=== PATIENT | male | born 1995 | race Hispanic/Latino ===

== ENCOUNTER 2019-04-20 14:59 | Emergency (ER) | payer SELFPAY ==
[~2019-04-20] VITALS: Ht 170.2 cm; Wt 149.7 kg
--- OUTSIDE RECORDS SUMMARY | 2019-04-20 15:03 | XMS REPORT | Clinical Summary ---
Author Author [facility] Organization [facility] Address Unknown Phone Unavailable Care Team Providers Care Classification And Treatment Director Name Role Phone Asked, No Pcp PCP Unavailable Allergies No Known Allergies Medications End Date Status Medication Sig Dispensed Refills Start Date 06/27/2018 Discontinued cephalexin (KEFLEX) 500 Take 1 28 capsule 0 10/14/201 MG capsule capsule (500 8 mg total) by mouth 4 (four) times a day for 7 days. 07/04/2018 cephalexin (KEFLEX) 500 Take 1 28 capsule 0 10/14/201 MG capsule capsule (500 8 mg total) by mouth 4 (four) times a day for 7 days. Active Problems Not on file Encounters Care Team Description Date Type Specialty Yovani Appiah II, Chun Johnson MD Encounter for removal of sutures (Primary Dx) 07/04/2018 Emergency Emergency Medicine Mathew Camacho MD Laceration of right hand, foreign body presence unspecified, initial encounter (Primary Dx); Laceration of right wrist, initial encounter 06/27/2018 Emergency Emergency Medicine after 04/19/2018 Immunizations Name Dates Previously Given Next Due Tdap 06/27/2018 Social History Date Tobacco Use Types Packs/Day Years Used Never Smoker Smokeless Tobacco: Never Used Alcohol Use Drinks/Week oz/Week Comments No Sex Assigned at Date Recorded Not on file Industry Job Start Date Occupation Not on file Not on file Not on file Travel End Travel History Travel Start No recent travel history available. Last Filed Vital Signs Time Taken Vital Sign Reading 07/04/2018 9:13 PM CDT Blood Pressure 140/78 07/04/2018 9:13 PM CDT Pulse 88 07/04/2018 9:13 PM CDT Temperature 36.4 C (97.6 F) 07/04/2018 9:13 PM CDT Respiratory Rate 18 07/04/2018 9:13 PM CDT Oxygen Saturation 96% - Inhaled Oxygen - Concentration - Weight - 07/04/2018 6:44 PM CDT Height 172.7 cm (5' 8") - Body Mass Index - Plan of Treatment Health Maintenance Due Date Last Done Comments INFLUENZA VACCINE 2019 Procedures Comments Procedure Name Priority Date/Time Associated Diagnosis SUTURE REMOVAL Routine 07/04/2018 9:34 PM CDT XR WRIST 3+ VW RIGHT STAT 06/27/2018 4:26 PM CDT XR HAND 3+ VW RIGHT STAT 06/27/2018 4:25 PM CDT KS RESUP NPTERF WND BODY Routine 06/27/2018 2.6-7.5 CM 4:24 PM CDT KS RESUP NPTERF WND BODY Routine 06/27/2018 2.6-7.5 CM 4:24 PM CDT after 04/19/2018 Results * SUTURE REMOVAL (07/04/2018 9:34 PM CDT) Narrative Performed At Chun Lemos MD 07/07/2018 10:07 PM Suture Removal Performed by: JULIETTE DUARTE Authorized by: CHUN LEMOS Consent: Consent obtained:Verbal Consent given by:Patient Risks discussed:Bleeding, pain and wound separation Alternatives discussed:No treatment Location: Location:Upper extremity Upper extremity location:Arm Arm location:R lower arm Procedure details: Wound appearance:No signs of infection, good wound healing and clean Number of sutures removed:13 Number of cristian removed:0 Post-procedure details: Post-procedure assessment: tissue adhevise Patient tolerance of procedure:Tolerated well, no immediate complications * XR Wrist 3+ Vw Right (06/27/2018 4:26 PM CDT) Specimen Narrative Performed At EXAMINATION:XR WRIST 3VW RIGHT [facility] CLINICAL HISTORY:falllaceration COMPARISON:None. TECHNIQUE: 3 views of the RIGHT wrist were performed in the frontal, frontal with ulnar deviation, oblique, and lateral projections. FINDINGS: There is no acute fracture or subluxation. There are no osseous lesions present. The bony alignment is maintained.There is no radiopaque foreign body seen within the soft tissues. IMPRESSION: Negative for fracture or dislocation to right wrist. [facility] [id number] Procedure Note Interface, Radiology Results Incoming - 06/27/2018 4:32 PM CDT EXAMINATION: XR WRIST 3 VW RIGHT CLINICAL HISTORY: fall laceration COMPARISON: None. TECHNIQUE: 3 views of the RIGHT wrist were performed in the frontal, frontal with ulnar deviation, oblique, and lateral projections. FINDINGS: There is no acute fracture or subluxation. There are no osseous lesions present. The bony alignment is maintained. There is no radiopaque foreign body seen within the soft tissues. IMPRESSION: Negative for fracture or dislocation to right wrist. [facility] [id number] Performing Organization Address [facility]/[employer] Phone Number [facility] [phone] [place] [address] * XR Hand 3+ Vw Right (06/27/2018 4:25 PM CDT) Specimen Narrative Performed At PROCEDURE:XR HAND 3VW RIGHT [facility] CLINICAL HISTORY:trauma COMPARISON:None. TECHNIQUE: 4 views of the RIGHT hand were performed in the frontal, lateral, and oblique projection as well as the lateral fanned finger projection. FINDINGS: No gross acute fracture, dislocation, bone destruction, or periosteal reaction is noted. No gross soft tissue swelling is seen..There is no radiopaque foreign body seen in the soft tissues. If the patient's symptoms persist or deteriorate, a follow-up radiograph in 10 days time is recommended, if clinically indicated. IMPRESSION: Negative for fracture or dislocation to right hand. [facility] [id number] Procedure Note Interface, Radiology Results Incoming - 06/27/2018 4:32 PM CDT PROCEDURE: XR HAND 3 VW RIGHT CLINICAL HISTORY: trauma COMPARISON: None. TECHNIQUE: 4 views of the RIGHT hand were performed in the frontal, lateral, and oblique projection as well as the lateral fanned finger projection. FINDINGS: No gross acute fracture, dislocation, bone destruction, or periosteal reaction is noted. No gross soft tissue swelling is seen.. There is no radiopaque foreign body seen in the soft tissues. If the patient's symptoms persist or deteriorate, a follow-up radiograph in 10 days time is recommended, if clinically indicated. IMPRESSION: Negative for fracture or dislocation to right hand. [facility] [id number] Performing Organization Address City/State/Zipcode Phone Number [facility] [phone] [place] [address] * LACERATION REPAIR (06/27/2018 4:24 PM CDT) Narrative Performed At Mathew Camacho MD 06/28/20186:13 PM Laceration Repair Performed by: LOY BARRIOS III Authorized by: MATHEW CAMACHO Consent: Consent obtained:Verbal Consent given by:Patient Risks discussed:Infection, need for additional repair, nerve damage, pain, poor cosmetic result, poor wound healing, retained foreign body, tendon damage and vascular damage Alternatives discussed:No treatment Anesthesia (see MAR for exact dosages): Anesthesia method:Local infiltration Local anesthetic:Lidocaine 1% WITH epi Laceration details: Location:Hand Hand location:R wrist Length (cm):4 Repair type: Repair type:Simple Pre-procedure details: Preparation:Patient was prepped and draped in usual sterile fashion and imaging obtained to evaluate for foreign bodies Exploration: Hemostasis achieved with:Direct pressure Wound exploration: wound explored through full range of motion and entire depth of wound probed and visualized Wound extent: no foreign bodies/material noted, no tendon damage noted and no underlying fracture noted Contaminated: no Treatment: Area cleansed with:Saline Amount of cleaning:Standard Irrigation solution:Sterile saline Irrigation method:Syringe Skin repair: Repair method:Sutures Suture size:3-0 Suture material:Prolene Suture technique:Simple interrupted Number of sutures:7 Approximation: Approximation:Close Post-procedure details: Dressing:Antibiotic ointment and non-adherent dressing Patient tolerance of procedure:Tolerated well, no immediate complications * LACERATION REPAIR (06/27/2018 4:24 PM CDT) Narrative Performed At Mathew Camacho MD 06/28/20186:13 PM Laceration Repair Performed by: LOY BARRIOS III Authorized by: MATHEW CAMACHO Consent: Consent obtained:Verbal Consent given by:Patient Risks discussed:Infection, need for additional repair, nerve damage, pain, poor cosmetic result, poor wound healing, retained foreign body, tendon damage and vascular damage Alternatives discussed:No treatment Anesthesia (see MAR for exact dosages): Anesthesia method:Local infiltration Local anesthetic:Lidocaine 1% WITH epi Laceration details: Location:Hand Hand location:R hand, dorsum Length (cm):3 Repair type: Repair type:Simple Pre-procedure details: Preparation:Patient was prepped and draped in usual sterile fashion and imaging obtained to evaluate for foreign bodies Exploration: Hemostasis achieved with:Direct pressure Wound extent: no foreign bodies/material noted, no tendon damage noted and no underlying fracture noted Contaminated: no Treatment: Area cleansed with:Saline Amount of cleaning:Standard Irrigation solution:Sterile saline Irrigation method:Syringe Skin repair: Repair method:Sutures Suture size:5-0 Suture material:Nylon Suture technique:Simple interrupted Number of sutures:6 Approximation: Approximation:Close Post-procedure details: Dressing:Antibiotic ointment and non-adherent dressing Patient tolerance of procedure:Tolerated well, no immediate complications after 04/19/2018 Advance Directives Patient has advance care planning documents on file. For more information, felipe herzog contact: Jhonny Chisholm [phone] [facility] [place] [address]
== END 2019-04-20 15:12 | disposition left against medical advice (07) ==
LOC: ER 14:59
DX: M79.605 Pain in left leg (principal); M79.604 Pain in right leg; M79.89 Other specified soft tissue disorders; E66.01 Morbid (severe) obesity due to excess calories; Z68.43 Body mass index [BMI] 50.0-59.9, adult